=== PATIENT | male | born 1970 | race Caucasian/White ===

== ENCOUNTER 2017-03-11 05:42 | Emergency (ER) | payer BC ==
[~2017-03-11] VITALS: Ht 167.6 cm; Wt 96.8 kg
[~2017-03-11 05:42] MED LIST: NORCO 5/3251 TABLET PO; ZOFRAN ODT4 MG PO
[2017-03-11] MEDS ORDERED: ALLOPURINOL100 MG PO (06:07)
[2017-03-11] MEDS ORDERED: INDOMETHACIN25 MG PO (06:07)
[2017-03-11 06:27] VITALS: BP 120/107
== END 2017-03-11 06:29 | disposition home or self-care (01) ==
LOC: EME 05:42
DX: M10.9 Gout, unspecified (principal); K21.9 Gastro-esophageal reflux disease without esophagitis
CPT/HCPCS: 99281; 99283

== ENCOUNTER 2017-10-02 12:49 | Emergency (ER) | payer BC ==
[~2017-10-02] VITALS: Ht 167.6 cm; Wt 99.2 kg
[~2017-10-02 12:49] MED LIST changes: +ALLOPURINOL100 MG PO; +INDOMETHACIN25 MG PO
[2017-10-02] MEDS ORDERED: FLEXERIL10 MG PO (15:34)
[2017-10-02 15:45] VITALS: BP 140/98
== END 2017-10-02 15:45 | disposition home or self-care (01) ==
LOC: EME 12:49
DX: S16.1XXA Strain of muscle, fascia and tendon at neck level, initial encounter (principal); X58.XXXA Exposure to other specified factors, initial encounter; R51 Headache; R03.0 Elevated blood-pressure reading, without diagnosis of hypertension; R05 Cough
CPT/HCPCS: 70450

== ENCOUNTER 2017-10-23 12:09 | Emergency (ER) | payer BC ==
[~2017-10-23] VITALS: Ht 167.6 cm; Wt 97.7 kg
[~2017-10-23 12:09] MED LIST changes: +FLEXERIL10 MG PO
[2017-10-23] MEDS ORDERED: PERCOCET 5/31 TABLET PO (16:30)
[2017-10-23 17:02] VITALS: BP 143/92
== END 2017-10-23 17:02 | disposition home or self-care (01) ==
LOC: EME 12:09
DX: M25.462 Effusion, left knee (principal); M54.16 Radiculopathy, lumbar region; M25.472 Effusion, left ankle; K21.9 Gastro-esophageal reflux disease without esophagitis; E78.5 Hyperlipidemia, unspecified; M25.562 Pain in left knee; M79.605 Pain in left leg
CPT/HCPCS: 73564; 93971; 99281; 99284